=== PATIENT | female | born 1970 | race Caucasian/White ===

== ENCOUNTER → 2017-11-14 09:59 | Outpatient (CLI) | payer OTHER, SELFPAY ==
[2017-11-14 12:25] LABS: Cholesterol 242 mg/dL (200); Glucose 78 mg/dL (70-110); High Density Lipoprotein 64 mg/dL; Triglycerides 143 mg/dL; Very Low Density Lipoprotein 29 mg/dL (5-40)
== END ==
PROVIDERS: Family Provider Family Medicine; PCP Family Medicine; Visit Provider Obstetrics & Gynecology
DX: Z13.1 Encounter for screening for diabetes mellitus (principal); Z13.220 Encounter for screening for lipoid disorders
CPT/HCPCS: 36415; 80061; 82947

== ENCOUNTER → 2018-02-05 09:56 | Outpatient (CLI) | payer OTHER, SELFPAY ==
[2018-02-05 12:34] LABS: T4 Free Direct 1.36 ng/dL (0.76-1.46); Thyroid Stim Hormone (TSH) 0.79 uIU/mL (0.358-3.74)
== END ==
PROVIDERS: Family Provider Family Medicine; PCP Family Medicine; Visit Provider Family Medicine
DX: E03.9 Hypothyroidism, unspecified (principal)
CPT/HCPCS: 36415; 84439; 84443

== ENCOUNTER → 2019-01-12 09:40 | Outpatient (CLI) | payer OTHER, SELFPAY ==
[2017-10-29 09:31] VITALS: BMI 26.1
--- NOTE | 2019-01-12 09:42 | BI_ITS ---
MAMMOGRAPHY - BILATERAL SCREENING REASON FOR EXAM: Female, 48 years old. Routine annual screening examination. PERTINENT HISTORY: Aunts with breast cancer. TECHNIQUE: Digital bilateral breast olegario (3D mammographic acquisition) in the CC and MLO projections. 2-D mediolateral oblique (MLO) and craniocaudad (CC) views of both breasts were obtained. CAD: Full Field Digital Mammography with Computer Added Detection was performed. COMPARISON: Comparison is made with prior study dated October 24, 2017 and August 28, 2016. FINDINGS: Breast Composition: The breasts are heterogeneously dense, which may obscure small masses. There are no dominant masses or suspicious calcifications. Stable benign-appearing bilateral axillary lymph nodes. No other significant abnormalities are identified. There has been no significant change since the prior study. BI/SCREEN MAMM (CAD) W/OLEGARIO BILAT IMPRESSION: Stable bilateral screening mammogram. Yearly follow-up mammogram recommended. (A) ASSESSMENT CATEGORY: BIRADS Category 2: Benign. A letter regarding these results will be sent to the patient by the facility within 30 days. Approximately 10% of breast cancers are not detected by mammography. A normal mammogram should not delay biopsy of a clinically suspicious abnormality. [id number] Electronically Signed: Syd Huynh, at 11:12 EDT , Service support ,
== END ==
PROVIDERS: Family Provider Family Medicine; PCP Family Medicine; Referring Provider Nurse Practitioner Women's Health; Visit Provider Nurse Practitioner Women's Health
DX: Z12.31 Encounter for screening mammogram for malignant neoplasm of breast (principal)
CPT/HCPCS: 77063; 77067

== ENCOUNTER → 2019-02-09 10:47 | Outpatient (CLI) | payer OTHER, SELFPAY ==
[2017-10-29 09:31] VITALS: BMI 26.1
[2019-02-09 13:43] LABS: Anion Gap 6 (5-15); BUN 14 mg/dL (7-18); BUN/Creat Ratio 16.4 RATIO (10-20); Calcium,Total 9.4 mg/dL (8.5-10.1); Chloride 108 mmol/L (98-107); Cholesterol 248 mg/dL (200); Creatinine, Serum 0.85 mg/dL (0.55-1.02); EST Glomerular Filtration Rate 75 mL/min (>60); Est Glom Filt Rate - Afr Amer 91 mL/min (>60); Glucose 81 mg/dL (74-106); High Density Lipoprotein 76 mg/dL; Potassium 4.9 mmol/L (3.5-5.1); Sodium Level 141 mmol/L (136-145); T4 Free Direct 1.53 ng/dL (0.76-1.46); Triglycerides 103 mg/dL; Very Low Density Lipoprotein 21 mg/dL (5-40)
== END ==
PROVIDERS: PCP Family Medicine; Visit Provider Family Medicine
DX: Z13.1 Encounter for screening for diabetes mellitus (principal); Z13.220 Encounter for screening for lipoid disorders; E03.9 Hypothyroidism, unspecified
CPT/HCPCS: 36415; 80048; 80061; 84439; 84443

== ENCOUNTER → 2019-03-23 13:24 | Outpatient (CLI) | payer OTHER, SELFPAY ==
[2019-03-23 09:50] VITALS: BMI 26.1
[2019-03-26 09:52] LABS: HPV APTIMA, High Risk Negative (Negative)
== END ==
PROVIDERS: Family Provider Family Medicine; PCP Family Medicine; Referring Provider Obstetrics & Gynecology; Visit Provider Obstetrics & Gynecology
DX: Z12.4 Encounter for screening for malignant neoplasm of cervix (principal)
CPT/HCPCS: 87624; 88175; G0145

== ENCOUNTER → 2020-02-26 08:51 | Outpatient (CLI) | payer OTHER, SELFPAY ==
[2019-03-23 09:50] VITALS: BMI 26.1
[2020-02-26 11:20] LABS: T4 Free Direct 1.64 ng/dL (0.76-1.46); Thyroid Stim Hormone (TSH) 0.02 uIU/mL (0.358-3.74)
[2020-03-01 09:42] LABS: Cholesterol 200 mg/dL (200); High Density Lipoprotein 68 mg/dL; Triglycerides 87 mg/dL; Very Low Density Lipoprotein 17 mg/dL (5-40)
== END ==
PROVIDERS: PCP Family Medicine; Visit Provider Family Medicine
DX: E03.9 Hypothyroidism, unspecified (principal); Z13.220 Encounter for screening for lipoid disorders
CPT/HCPCS: 36415; 80061; 84439; 84443

== ENCOUNTER → 2020-04-19 12:16 | Outpatient (CLI) | payer OTHER, SELFPAY ==
[2019-03-23 09:50] VITALS: BMI 26.1
--- NOTE | 2020-04-19 12:17 | BI_ITS ---
MAMMOGRAPHY - BILATERAL SCREENING REASON FOR EXAM: Female, 49 years old. Routine annual screening examination. PERTINENT HISTORY: Aunts with breast cancer. TECHNIQUE: Digital bilateral breast olegario (3D mammographic acquisition) in the CC and MLO projections. 2-D mediolateral oblique (MLO) and craniocaudad (CC) views of both breasts were obtained. CAD: Full Field Digital Mammography with Computer Added Detection was performed. COMPARISON: Comparison is made with prior study dated January 12, 2019 and October 24, 2017. FINDINGS: Breast Composition: The breasts are heterogeneously dense, which may obscure small masses. There are no dominant masses or suspicious calcifications. Stable benign-appearing bilateral axillary lymph nodes. No other significant abnormalities are identified. There has been no significant change since the prior study. BI/SCREEN MAMM (CAD) W/OLEGARIO BILAT IMPRESSION: Stable bilateral screening mammogram. Yearly follow-up mammogram recommended. (A) ASSESSMENT CATEGORY: BIRADS Category 2: Benign. A letter regarding these results will be sent to the patient by the facility within 30 days. Approximately 10% of breast cancers are not detected by mammography. A normal mammogram should not delay biopsy of a clinically suspicious abnormality. [id number] Electronically Signed: Syd Huynh, at 14:32 EDT , Service support ,
== END ==
PROVIDERS: PCP Family Medicine; Referring Provider Obstetrics & Gynecology; Visit Provider Obstetrics & Gynecology
DX: Z12.31 Encounter for screening mammogram for malignant neoplasm of breast (principal)
CPT/HCPCS: 77063; 77067

== ENCOUNTER → 2021-03-01 14:19 | Outpatient (CLI) | payer OTHER, SELFPAY ==
[2020-05-24 12:58] VITALS: BMI 26.1
[2021-03-01 18:44] LABS: T4 Free Direct 1.42 ng/dL (0.76-1.46); Thyroid Stim Hormone (TSH) 0.04 uIU/mL (0.358-3.74)
== END ==
PROVIDERS: PCP Family Medicine; Referring Provider Family Medicine; Visit Provider Family Medicine
DX: E03.9 Hypothyroidism, unspecified (principal)
CPT/HCPCS: 36415; 84439; 84443

== ENCOUNTER → 2021-05-08 11:50 | Outpatient (CLI) | payer OTHER, SELFPAY ==
[2020-05-24 12:58] VITALS: BMI 26.1
--- NOTE | 2021-05-08 11:58 | BI_ITS ---
MAMMOGRAPHY - BILATERAL SCREENING REASON FOR EXAM: Female, 50 years old. Routine annual screening examination. PERTINENT HISTORY: Aunts with breast cancer. TECHNIQUE: Digital bilateral breast olegario (3D mammographic acquisition) in the CC and MLO projections. 2-D mediolateral oblique (MLO) and craniocaudad (CC) views of both breasts were obtained. CAD: Full Field Digital Mammography with Computer Added Detection was performed. COMPARISON: Comparison is made with prior study dated 04/19/2020 and 01/12/2019. FINDINGS: Breast Composition: The breasts are heterogeneously dense, which may obscure small masses. There are no dominant masses or suspicious calcifications. Stable benign-appearing bilateral axillary lymph nodes. No other significant abnormalities are identified. There has been no significant change since the prior study. BI/SCRN MAMM (CAD)W/OLEGARIO BILAT IMPRESSION: Stable bilateral screening mammogram. Yearly follow-up mammogram recommended. (A) ASSESSMENT CATEGORY: BIRADS Category 2: Benign. A letter regarding these results will be sent to the patient by the facility within 30 days. Approximately 10% of breast cancers are not detected by mammography. A normal mammogram should not delay biopsy of a clinically suspicious abnormality. [id number] Electronically Signed: Syd Huynh MD at 12:52 EDT , Service support ,
== END ==
PROVIDERS: PCP Family Medicine; Referring Provider Obstetrics & Gynecology; Visit Provider Obstetrics & Gynecology
DX: Z12.31 Encounter for screening mammogram for malignant neoplasm of breast (principal)
CPT/HCPCS: 77063; 77067

== ENCOUNTER 2021-10-16 14:11 | Outpatient (CLI) | payer OTHER, SELFPAY | END 2021-10-16 23:59 | disposition short-term general hospital (02) | LOC: LABSPEC 14:12 | PROVIDERS: PCP Family Medicine; Visit Provider Nurse Practitioner Family | DX: R39.9 Unspecified symptoms and signs involving the genitourinary system (principal) | CPT/HCPCS: 87086; 87088 ==

== ENCOUNTER 2021-11-16 09:54 | Emergency (ER) | payer OTHER, SELFPAY ==
[2021-11-16 09:55] VITALS: BP 125/77; PULSE 112; RESP 16; TEMP 35.7; O2SAT 100; BMI 27.0
--- NOTE | 2021-11-16 10:11 | CT_ITS ---
STUDY: CT ABDOMEN AND PELVIS WITHOUT CONTRAST REASON FOR EXAM: Female, 51 years old. Right flank pain. Painful urination. RADIATION DOSAGE (If Supplied By Facility): CTDIvol = ( 8.11 ) mGy, DLP = ( 370.83 ) mGycm TECHNIQUE: Transaxial images were obtained from the dome of the diaphragm to the symphysis pubis without oral contrast, and without intravenous contrast. Sagittal and coronal images were reconstructed. Individualized dose optimization techniques were used for this CT. COMPARISON: None. FINDINGS: The visualized lung bases are unremarkable. The visualized portions of the heart are within normal limits. Normal liver. Normal gallbladder and extrahepatic biliary system. Normal spleen. Normal pancreas. Normal bilateral adrenal glands. 3 mm calculus in the lower pole calyx of the right kidney. There is a 4 mm nonobstructive calculus in the lower pole calyx of the left kidney. Normal visualized stomach. Normal small intestine. Normal colon. The appendix is visualized and appears normal. Normal abdominal aorta. Normal inferior vena cava. Normal retroperitoneum. Normal urinary bladder. There is evidence of bilateral tubal ligation. Normal abdominal wall. Normal osseous structures. CT/Abdomen/Pelvis without Cont IMPRESSION: Small bilateral nonobstructive intrarenal calculi. No obstructive uropathy is seen at this time. Electronically Signed: Syd Huynh MD at 10:46 EST ,
--- NOTE | 2021-11-16 10:14 | EDS_ITS ---
HPI <MARA Chappell - Last Filed: 11/16/21 11:14> History of Present Illness Chief Complaint: Flank Pain Narrative Narrative: 51-year-old female with PMH of kidney stones presents with right onset flank pain 6 days ago. She also has nausea, dysuria, and frequency. She states it feels like her previous stones which passed without surgical intervention. She denies fever, vomiting, hematuria, or bowel symptoms. Previous abdominal surgeries include tubal ligation. Prior similar symptoms: Yes Recent Illness/Hospitalization: No PFSH <MARA Chappell - Last Filed: 11/16/21 11:14> PFSH Medical History (Updated 11/16/21 @ 10:56 by MARA Chappell) COVID-19 Thyroid disorder Home Medications levothyroxine 112 mcg tablet 112 mcg PO DAILY 05/24/20 [History Last Taken Unknown] cephalexin 500 mg PO Q6 #28 capsule 11/16/21 [Rx Last Taken Unknown] hydrocodone-acetaminophen 1 tab PO Q6H PRN PRN 3 Days #12 tablet MDD 4 11/16/21 [Rx Last Taken Unknown] ondansetron 4 mg PO Q8H PRN PRN #10 tab 11/16/21 [Rx Last Taken Unknown] Allergy/AdvReac Type Severity Reaction Status Date / Time No Known Allergies Allergy Verified 11/16/21 09:57 Family History Son Diabetes Father Cancer prostate Suicide Mother Hypertension Kidney stone Surgical History cyst removed from foot H/O tubal ligation History of tonsillectomy Social History Smoking Status: Never smoker alcohol intake: never substance use type: does not use caffeine: Yes what type of physical activity do you participate in: none seatbelt use: always do you feel safe at home: Yes 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 Eyes: Negative for visual change. ENT: Negative for sore throat, ear pain, rhinorrhea. CVS: Negative for palpitations, chest pain, syncope. Respiratory: Negative for shortness of breath, cough, orthopnea. GI: Positive for abdominal pain, nausea. Negative for vomiting, diarrhea, constipation, melena, hematochezia. : Positive for dysuria, frequency. Negative for hematuria. Neuro: Negative for headache, motor/sensory dysfunction. Skin: Negative for rash, abscess, or wound. Endo: Negative for polyuria, polydipsia. Heme: Negative for easy bruising, bleeding, lymphadenopathy. Allergy: Negative for hives, oral swelling EXAM <MARA Chappell - Last Filed: 11/16/21 11:14> Physical Exam Narrative Exam Narrative: CONST: Patient sitting in no acute distress EYES: Normal inspection ENT: Normal inspection, pharynx normal, moist mucous membranes NECK: Normal inspection RESP: No respiratory distress, CTAB CVS: Regular rate and rhythm, no murmur, no gallop ABD: Soft and nontender, no guarding or rebound, nondistended, no hepatosplenomegaly Back: Normal inspection, right CVA tenderness SKIN: Color normal, no rash, warm, dry, intact EXTREMITIES: normal appearance, no pedal edema NEURO: Oriented x4 PSYCH: Normal affect Const Vital Signs: 11/16/21 09:55 Temperature 96.2 F L Temperature Source Temporal Pulse Rate 112 H Respiratory Rate 16 Blood Pressure 125/77 H Blood Pressure Mean 93 Pulse Ox 100 Oxygen Delivery Method Room Air <Dr. Carolina Jeter DO - Last Filed: 11/16/21 12:55> Physical Exam Const Vital Signs: 11/16/21 09:55 Temperature 96.2 F L Temperature Source Temporal Pulse Rate 112 H Respiratory Rate 16 Blood Pressure 125/77 H Blood Pressure Mean 93 Pulse Ox 100 Oxygen Delivery Method Room Air [facility] <MARA Chappell - Last Filed: 11/16/21 11:14> [facility] Narrative Medical decision making narrative: Patient presented with right flank pain and dysuria. She appears well nontoxic. She was slightly tachycardic with othe rwise normal vital signs. Her abdominal exam is benign and she has right CVA tenderness. Labs show leukocytosis of 18.8 with normal electrolytes and renal function. UA is consistent with UTI. CT is negative for stone or acute findings. Work-up is consistent with pyelonephritis. She was treated with IV fluids, analgesia, and Rocephin. I prescribed Percocet, Zofran, and Keflex 4 times daily for home. She already has follow-up with a urologist established and was counseled on signs that would warrant return. She was discharged in stable condition. Lab Data Labs: Laboratory Results - last 24 hr 11/16/21 11/16/21 11/16/21 10:05 10:10 10:10 WBC 18.8 H RBC 4.66 Hgb 12.8 Hct 40.0 MCV 85.8 MCH 27.5 MCHC 32.0 RDW Std Deviation 40.5 RDW Coeff of Abi 12.9 Plt Count 343 MPV 10.2 Immature Gran % (Auto) 0.500 Neut % (Auto) 74.9 H Lymph % (Auto) 14.8 L [place] % (Auto) 8.8 Eos % (Auto) 0.7 Baso % (Auto) 0.3 Absolute Neuts (auto) 14.1 H Absolute Lymphs (auto) 2.77 Nucleated RBC % 0 Differential Comment COMMENT Diff Path Review May foll Sodium 138 Potassium 3.8 Chloride 106 Carbon Dioxide 26.0 Anion Gap 6 BUN 14 Creatinine 0.86 Estim Creat Clear Calc 59.83 Est GFR (MDRD) Af Amer 89 Est GFR (MDRD) Non-Af 73 BUN/Creatinine Ratio 16.2 Glucose 107 H Calcium 9.6 Urine Color Yellow Urine Clarity Clear Urine pH 7.0 Ur Specific [place] 1.010 Urine Protein 30 H Urine Glucose (UA) Normal Urine Ketones Negative Urine Occult Blood 50 H Urine Nitrite Positive H Urine Bilirubin Negative Urine Urobilinogen 1 H Ur Leukocyte Esterase 500 H Urine RBC 0 SEEN Urine WBC 50-100 SEEN Ur Squamous Epith Cells 0 SEEN Urine Bacteria 2+ Urine Mucus 0 SEEN Radiography Diagnostic Testing: Clinical Impression(s) from Imaging Studies Abdomen/Pelvis CT 11/16/21 10:11 IMPRESSION: Small bilateral nonobstructive intrarenal calculi. No obstructive uropathy is seen at this time. Electronically Signed: Syd Huynh MD at 10:46 EST , <Dr. Carolina Jeter, DO - Last Filed: 11/16/21 12:55> MDM MDM Narrative Medical decision making narrative: Patient evaluated independently and in conjunction with physician travel assistant. Agree with note above unless documented otherwise. I was personally present or immediately available for all clinically relevant procedures and performed my own physical exam and review of systems. Patient evaluates for 6 days of right-sided flank pain with urinary symptoms and nausea. Vital signs are significant for tachycardia but she is afebrile. Patient is given Toradol, Zofran and fluids and has significant improvement of her symptoms while in the emergency room. Her differential includes pyelonephritis, obstructing ureterolithiasis or combination of the 2. Patient does have a leukocytosis of 18.8 however her kidney function is normal. Urinalysis is highly consistent with infection. CT obtained which shows nonobstructing stones. I suspect this is more of a straightforward pyelonephritis. Patient is given a dose of Rocephin in the ER and urine culture sent. She is able tolerate p.o. and I think would be a good candidate for outpatient treatment at this time. She started on high-dose Keflex for this. She is given a short course of pain medication as well as Zofran. Patient has outpatient follow-up with Dr. Gomez is scheduled. She is encouraged to keep that. Patient ambulates easily out of the emergency room. She is counseled return precautions. Lab Data Labs: Laboratory Results - last 24 hr 11/16/21 11/16/21 11/16/21 10:05 10:10 10:10 WBC 18.8 H RBC 4.66 Hgb 12.8 Hct 40.0 MCV 85.8 MCH 27.5 MCHC 32.0 RDW Std Deviation 40.5 RDW Coeff of Abi 12.9 Plt Count 343 MPV 10.2 Immature Gran % (Auto) 0.500 Neut % (Auto) 74.9 H Lymph % (Auto) 14.8 L [place] % (Auto) 8.8 Eos % (Auto) 0.7 Baso % (Auto) 0.3 Absolute Neuts (auto) 14.1 H Absolute Lymphs (auto) 2.77 Nucleated RBC % 0 Differential Comment COMMENT Diff Path Review May foll Sodium 138 Potassium 3.8 Chloride 106 Carbon Dioxide 26.0 Anion Gap 6 BUN 14 Creatinine 0.86 Estim Creat Clear Calc 59.83 Est GFR (MDRD) Af Amer 89 Est GFR (MDRD) Non-Af 73 BUN/Creatinine Ratio 16.2 Glucose 107 H Calcium 9.6 Urine Color Yellow Urine Clarity Clear Urine pH 7.0 Ur Specific [place] 1.010 Urine Protein 30 H Urine Glucose (UA) Normal Urine Ketones Negative Urine Occult Blood 50 H Urine Nitrite Positive H Urine Bilirubin Negative Urine Urobilinogen 1 H Ur Leukocyte Esterase 500 H Urine RBC 0 SEEN Urine WBC 50-100 SEEN Ur Squamous Epith Cells 0 SEEN Urine Bacteria 2+ Urine Mucus 0 SEEN Radiography Diagnostic Testing: Clinical Impression(s) from Imaging Studies Abdomen/Pelvis CT 11/16/21 10:11 IMPRESSION: Small bilateral nonobstructive intrarenal calculi. No obstructive uropathy is seen at this time. Electronically Signed: Syd Huynh MD at 10:46 EST Reading Location ID and State: [facility] / [place] , Service support , Discharge Plan Triage Chief Complaint: Flank Pain ED Provider: Anu Estrella Dx/Rx/DC Orders Clinical Impression: Pyelonephritis, Leukocytosis Instructions: ED Pyelonephritis, Female (Adult) Prescriptions: New hydrocodone-acetaminophen [hydrocodone-acetaminophen] 1 TABLET tablet 1 tab PO Q6H PRN MDD 4 PRN (Reason: Pain) 3 Days Qty: 12 RF: 0 cephalexin [cephalexin] 500 MG capsule 500 mg PO Q6 Qty: 28 RF: 0 ondansetron [ondansetron] 4 MG tablet 4 mg PO Q8H PRN PRN (Reason: Nausea) Qty: 10 RF: 0 No Action levothyroxine [Synthroid] 112 mcg tablet 112 mcg PO DAILY RF: 0 Primary Care Provider: Allen Olea Referrals: Allen Olea MD [Primary Care Provider] - Disposition Disposition: Home, Self Care Discharge Date/Time: 11/16/21 11:46
[2021-11-16] MEDS: Ondansetron 4 MG/2 ML Vial IV (10:17)
[2021-11-16] MEDS: Ketorolac 15 MG/ML Vial IV (10:17)
[2021-11-16] MEDS: 0.9% Normal Saline 1,000 ML 250 ML IV (10:17)
[2021-11-16 10:18] LABS: Mucous, Urine 0 SEEN /hpf (<or=2+); Red Blood Cells-Urine 0 SEEN /hpf (0-5); Squamous Epithelial Cells - UA 0 SEEN /hpf (5-10)
[2021-11-16 10:20] LABS: Absolute Lymphocyte Count 2.77 X10^3/uL (0.83-4.51); Absolute Neutrophil Count 14.1 X10^3/uL (2.0-7.7); Basophil# 0.06 X10^3/uL; Basophil% 0.3 % (0-1); Differential Indicated SCAN CRITERIA MET; Eosinophil# 0.13 X10^3/uL; Eosinophils% 0.7 % (0-5); Hemoglobin 12.8 g/dL (12.0-15.0); Lymphocyte # 2.77 X10^3/ul (0.83-4.51); Lymphocyte % 14.8 % (19-41); Mean Corpuscular Hgb 27.5 pg (27.0-32.0); Mean Corpuscular Volume 85.8 fL (81-99); Mean Platelet Vol. 10.2 fl (6.2-12.0); Monocyte# 1.65 X10^3/uL; Monocyte% 8.8 % (0-10); NRBC Flagged by Analyzer 0 % (0-5); Neutrophil # 14.06 X10^3/uL (2.7-7.7); Neutrophil % 74.9 % (47-70); POSITIVE DIFFERENTIAL YES; Platelet Count 343 K/mm3 (150-450); RBC Distribution Width CV 12.9 % (11.6-14.6); RBC Distribution Width SD 40.5 fl (35.1-43.9); Red Blood Count 4.66 M/mm3 (4.2-5.4); White Blood Count 18.8 K/mm3 (4.4-11.0)
[2021-11-16 10:20] LABS: Color, Urine Yellow (Yellow); Glucose, Dipstick Normal (Normal); Ketone-Dipstick Negative (Negative); Leukocyte Esterase-Dipstick 500 /ul (Negative); Nitrite-Dipstick Positive (Negative); Occult Blood-Urine 50 /ul (Negative); Protein-Dipstick 30 mg/dl (Negative); Urine Bilirubin Dipstick Negative (Negative); Urine Clarity Clear (Clear); Urine Urobilinogen 1 mg/dl (Normal)
[2021-11-16 10:26] LABS: Bacteria 2+ /hpf (None Seen); White Blood Cells 50-100 SEEN /hpf (0-5)
[2021-11-16 10:30] LABS: Anion Gap 6 (5-15); BUN 14 mg/dL (7-18); BUN/Creat Ratio 16.2 RATIO (10-20); Calcium,Total 9.6 mg/dL (8.5-10.1); Chloride 106 mmol/L (98-107); Creatinine, Serum 0.86 mg/dL (0.55-1.02); EST Glomerular Filtration Rate 73 mL/min (>60); Est Glom Filt Rate - Afr Amer 89 mL/min (>60); Estimated Creatinine Clearance 59.83 ml/min; Glucose 107 mg/dL (74-106); Potassium 3.8 mmol/L (3.5-5.1); Sodium Level 138 mmol/L (136-145)
[2021-11-16] MEDS: Ceftriaxone 1 GM/50 ML BAG IV (11:10)
[2021-11-17 12:31] LABS: Pathologist Review Reviewed
== END 2021-11-16 11:46 | disposition home or self-care (01) ==
PROVIDERS: Emergency Provider Physician Assistant; PCP Family Medicine; Visit Provider Physician Assistant
DX: D72.829 Elevated white blood cell count, unspecified (principal); N12 Tubulo-interstitial nephritis, not specified as acute or chronic; E07.9 Disorder of thyroid, unspecified; Z86.16 Personal history of COVID-19; Z79.899 Other long term (current) drug therapy
CPT/HCPCS: 74176; 80048; 81001; 85025; 87086; 87088; 87186; 96365; 96375; 99283; J7030; A4216; J2405

== ENCOUNTER 2021-12-19 14:13 | Outpatient (CLI) | payer OTHER, SELFPAY ==
[2021-12-19 18:19] LABS: Thyroid Stim Hormone (TSH) 0.06 uIU/mL (0.358-3.74)
== END 2021-12-19 23:59 | disposition home or self-care (01) ==
LOC: MFPLAB 14:14
PROVIDERS: PCP Family Medicine; Referring Provider Family Medicine; Visit Provider Family Medicine
DX: E03.9 Hypothyroidism, unspecified (principal)
CPT/HCPCS: 36415; 84443

== ENCOUNTER 2021-12-19 14:22 | Outpatient (CLI) | payer OTHER, SELFPAY ==
--- NOTE | 2021-12-19 14:24 | RAD_ITS ---
STUDY: X-RAY - ABDOMEN/PELVIS REASON FOR EXAM: Female, 51 years old. Renal stones. Follow-up. TECHNIQUE: CT of the abdomen and pelvis dated 11/16/2021. COMPARISON: None. FINDINGS: Normal visualized lung bases. There is an unremarkable bowel gas pattern. There is no demonstrated free abdominal air. The small calcifications seen on the CT study are not seen today because of overlying feces and bowel gas. Tubal ligation clips. Normal visualized osseous structures. RAD/Abdomen Single View IMPRESSION: No calcifications seen because of overlying bowel gas and feces. No acute finding. Electronically Signed: Vinicius Ricks MD at 9:31 EST ,
== END 2021-12-19 23:59 | disposition home or self-care (01) ==
LOC: MTRAD 14:23
PROVIDERS: PCP Family Medicine; Referring Provider Urology; Visit Provider Urology
DX: N20.0 Calculus of kidney (principal)
CPT/HCPCS: 74018

== ENCOUNTER → 2022-02-03 | Outpatient (CLI) | payer OTHER, SELFPAY ==
[2022-02-03 14:14] LABS: Mucous, Urine 0 SEEN /hpf (<or=2+); Squamous Epithelial Cells - UA 0 SEEN /hpf (5-10)
[2022-02-03 14:27] LABS: Color, Urine Yellow (Yellow); Glucose, Dipstick Normal (Normal); Ketone-Dipstick Negative (Negative); Leukocyte Esterase-Dipstick 25 /ul (Negative); Nitrite-Dipstick Negative (Negative); Occult Blood-Urine 10 /ul (Negative); Protein-Dipstick Negative (Negative); Specific Gravity, Urine 1.015 (1.002-1.030); Urine Bilirubin Dipstick Negative (Negative); Urine Clarity Clear (Clear); Urine Urobilinogen Normal (Normal)
[2022-02-03 14:35] LABS: White Blood Cells 10-25 SEEN /hpf (0-5)
[2022-02-03 14:36] LABS: Bacteria RARE /hpf (None Seen); Red Blood Cells-Urine 0 SEEN /hpf (0-5)
== END | disposition home or self-care (01) ==
LOC: LABSPEC 14:11
PROVIDERS: PCP Family Medicine; Visit Provider Physician Assistant Surgical
DX: N39.0 Urinary tract infection, site not specified (principal)
CPT/HCPCS: 81001; 87086; 87088

== ENCOUNTER → 2022-02-19 | Outpatient (CLI) | payer OTHER, SELFPAY ==
[2022-02-19 18:39] LABS: T4 Free Direct 1.28 ng/dL (0.76-1.46); Thyroid Stim Hormone (TSH) 0.15 uIU/mL (0.358-3.74)
== END | disposition home or self-care (01) ==
LOC: MFPLAB 14:11
PROVIDERS: PCP Family Medicine; Visit Provider Family Medicine
DX: E03.9 Hypothyroidism, unspecified (principal)
CPT/HCPCS: 36415; 84439; 84443

== ENCOUNTER → 2022-05-09 | Outpatient (CLI) | payer OTHER, SELFPAY ==
--- NOTE | 2022-05-09 13:08 | BI_ITS ---
MAMMOGRAPHY - BILATERAL SCREENING REASON FOR EXAM: Female, 51 years old. Routine annual screening examination. PERTINENT HISTORY: Aunts with breast cancer. TECHNIQUE: Digital bilateral breast olegario (3D mammographic acquisition) in the CC and MLO projections. 2-D mediolateral oblique (MLO) and craniocaudad (CC) views of both breasts were obtained. CAD: Full Field Digital Mammography with Computer Added Detection was performed. COMPARISON: Comparison is made with prior study dated 05/08/2021 and 04/19/2020. FINDINGS: Breast Composition: The breasts are heterogeneously dense, which may obscure small masses. There are no dominant masses or suspicious calcifications. Stable small bilateral axillary lymph nodes. No other significant abnormalities are identified. There has been no significant change since the prior study. BI/SCRN MAMM (CAD)W/OLEGARIO BILAT IMPRESSION: Stable bilateral screening mammogram. Yearly follow-up mammogram recommended. (A) ASSESSMENT CATEGORY: BIRADS Category 2: Benign. A letter regarding these results will be sent to the patient by the facility within 30 days. Approximately 10% of breast cancers are not detected by mammography. A normal mammogram should not delay biopsy of a clinically suspicious abnormality. [id number] Electronically Signed: Syd Huynh MD at 14:07 EDT ,
== END | disposition home or self-care (01) ==
LOC: OPBI 13:07
PROVIDERS: PCP Family Medicine; Visit Provider Obstetrics & Gynecology
DX: Z12.31 Encounter for screening mammogram for malignant neoplasm of breast (principal)
CPT/HCPCS: 77063; 77067

== ENCOUNTER → 2022-12-10 | Outpatient (CLI) | payer OTHER, SELFPAY ==
--- NOTE | 2022-12-10 08:55 | US_ITS ---
STUDY: ULTRASOUND BREAST - RIGHT REASON FOR EXAM: Female, 52 years old. Pain in the right breast. TECHNIQUE: Axial and longitudinal images of the RIGHT breast were performed with a high resolution ultrasound transducer. # OF IMAGES: 60 COMPARISON: Comparison is made with prior mammogram done earlier in today. FINDINGS: RIGHT Breast: The inferior half of the right breast was examined with ultrasound. There is heterogeneously dense fibroglandular tissue. No sonographic abnormality is seen. IMPRESSION: No sonographic abnormality is seen. ASSESSMENT CATEGORY: BIRADS Category 1: Negative. A letter regarding these results will be sent to the patient by the facility within 30 days. Electronically Signed: Syd Huynh MD at 14:52 EST , STUDY: ULTRASOUND BREAST - LEFT REASON FOR EXAM: Female, 52 years old. Pain in the left breast. TECHNIQUE: Axial and longitudinal images of the LEFT breast were performed with a high resolution ultrasound transducer. # OF IMAGES: 60 COMPARISON: Comparison is made with prior mammogram done earlier today. FINDINGS: LEFT Breast: The upper lateral aspect of the left breast was examined with ultrasound. No sonographic abnormality is seen. US/Breast Limited Unilateral
--- NOTE | 2022-12-10 08:55 | BI_ITS ---
MAMMOGRAPHY - BILATERAL DIAGNOSTIC REASON FOR EXAM: Female, 52 years old. Pain in the upper outer aspect of the left breast. PERTINENT HISTORY: Aunts with breast cancer. TECHNIQUE: Digital bilateral breast adi (3D mammographic acquisition) in the CC and MLO projections. 2-D mediolateral oblique (MLO) and craniocaudad (CC) views of both breasts were obtained. CAD: Full Field Digital Mammography with Computer Added Detection was performed. COMPARISON: Comparison is made with prior examination of 05/09/2022 and 05/08/2021. FINDINGS: Breast Composition: The breasts are heterogeneously dense, which may obscure small masses. There are no dominant masses or suspicious calcifications. Stable benign-appearing bilateral axillary lymph nodes. No other significant abnormalities are identified. There has been no significant change since the prior study. BI/DIAG MAMM W/CAD, BILAT IMPRESSION: Stable bilateral diagnostic mammogram. One year follow-up recommended. (A) ASSESSMENT CATEGORY: BIRADS Category 2: Benign. A letter regarding these results will be sent to the patient by the facility within 30 days. Approximately 10% of breast cancers are not detected by mammography. A normal mammogram should not delay biopsy of a clinically suspicious abnormality. Electronically Signed: Syd Huynh MD at 10:54 EST ,
== END | disposition home or self-care (01) ==
LOC: OPBI 08:53
PROVIDERS: PCP Family Medicine; Visit Provider Obstetrics & Gynecology
DX: N64.4 Mastodynia (principal)
CPT/HCPCS: 76642; 77062; 77066; G0279

== ENCOUNTER → 2022-12-31 | Outpatient (CLI) | payer OTHER, SELFPAY ==
[2022-12-31 16:10] LABS: Thyroid Stim Hormone (TSH) 0.59 uIU/mL (0.358-3.74)
== END | disposition home or self-care (01) ==
LOC: MFPLAB 11:51
PROVIDERS: PCP Family Medicine; Visit Provider Family Medicine
DX: E03.9 Hypothyroidism, unspecified (principal)
CPT/HCPCS: 36415; 84439; 84443

== ENCOUNTER → 2023-01-16 | Outpatient (CLI) | payer OTHER, SELFPAY ==
--- NOTE | 2023-01-16 12:59 | RAD_ITS ---
INDICATION: BILATERAL STONES EXAMINATION/TECHNIQUE: X-RAY - XR Abdomen 1 View COMPARISON: FINDINGS: BOWEL GAS PATTERN: Non-obstructive. No bowel or stomach distention. FREE AIR: Not assessed on a single supine view. ORGANOMEGALY: Not seen. CALCIFICATIONS: Stool and bowel gas obscure anatomic detail of the kidneys. No abnormal calcifications observed. LOWER CHEST: No acute pathology. BONES AND SOFT TISSUES: There are tubal ligation clips in place. RAD/Abdomen Single View IMPRESSION: Non-obstructive bowel gas pattern. Limited visualization of the expected region of the kidneys secondary to overlying bowel gas and stool with no renal calculi identified. Electronically Signed: Aminta Camilo MD at 9:40 EDT ,
== END | disposition home or self-care (01) ==
LOC: MTRAD 12:58
PROVIDERS: PCP Family Medicine; Visit Provider Urology
DX: N20.0 Calculus of kidney (principal)
CPT/HCPCS: 74018

== ENCOUNTER → 2024-05-13 | Outpatient (CLI) | payer OTHER, SELFPAY ==
--- NOTE | 2024-05-13 14:50 | BI_ITS ---
MAMMOGRAPHY - BILATERAL SCREENING REASON FOR EXAM: Female, 53 years old. Routine annual screening examination. PERTINENT HISTORY: Aunts with breast cancer. TECHNIQUE: Digital bilateral breast olegario (3D mammographic acquisition) in the CC and MLO projections. 2-D mediolateral oblique (MLO) and craniocaudad (CC) views of both breasts were obtained. CAD: Full Field Digital Mammography with Computer Added Detection was performed. COMPARISON: Comparison is made with prior study dated May 09, 2022 and December 10, 2022. FINDINGS: Breast Composition: The breasts are heterogeneously dense, which may obscure small masses. There are no dominant masses or suspicious calcifications. No other significant abnormalities are identified. There has been no significant change since the prior study. BI/SCRN MAMM (CAD)W/OLEGARIO BILAT IMPRESSION: Stable bilateral screening mammogram. Yearly follow-up mammogram recommended. (A) ASSESSMENT CATEGORY: BIRADS Category 1: Negative. A letter regarding these results will be sent to the patient by the facility within 30 days. Approximately 10% of breast cancers are not detected by mammography. A normal mammogram should not delay biopsy of a clinically suspicious abnormality. [id number] Electronically Signed: Syd Huynh MD at 8:57 EDT ,
--- NOTE | 2024-05-13 15:13 | US_ITS ---
INDICATION: pelvic pain EXAMINATION: Ultrasound US Pelvis Non OB Complete With Transvaginal Imaging TECHNIQUE: Transabdominal and transvaginal pelvic ultrasound was performed. Grayscale, spectral waveform, and color flow Doppler evaluation of the adnexa. COMPARISON: CT November 16, 2021. FINDINGS: UTERUS: Anteverted. The uterus measures 5.2 x 2.7 x 4.9 cm. No evidence of uterine mass. The endometrial stripe measures 2 mm left in AP diameter RIGHT OVARY: Obscured by bowel gas and surrounding soft tissues and not seen on transabdominal or endovaginal exam . LEFT OVARY: Obscured by bowel gas and surrounding soft tissues and not seen on transabdominal or endovaginal exam BLADDER: Anechoic without focal wall thickening with prevoid volume 6 2 mL. FREE FLUID: None. US/Pelvic w/ Transvaginal IMPRESSION: Thin endometrial stripe is nonspecific in a perimenopausal female but can be seen with endometrial atrophy. Ovaries are obscured as above, limiting exam. Electronically Signed: Zion Orr MD at 8:47 EDT ,
--- NOTE | 2024-05-13 15:14 | US_ITS ---
INDICATION: BACK PAIN/HX STONES EXAMINATION: Ultrasound US Kidney(s) complete (eg, kidneys and bladder) TECHNIQUE: Muniz scale and color doppler images were obtained of the kidneys. COMPARISON: November 16, 2021 CT. FINDINGS: RIGHT KIDNEY: 10.6 x 4.9 x 3.8 cm. Mild hydronephrosis. Mid pole 7 mm and lower pole 6 mm nonobstructive nonshadowing renal stones are suggested with twinkle artifact. No focal lesion or perinephric collection is demonstrated. LEFT KIDNEY: 12.1 x 4.6 x 5.1 cm. There is no hydronephrosis. Mid pole 8mm and 7 mm lower pole nonobstructive nonshadowing renal stones are suggested with twinkle artifact. No shadowing calculus, focal lesion or perinephric collection is demonstrated. URINARY BLADDER: Anechoic 5.1 x 5.5 x 10.0 cm (147 mL). Bilateral ureteral jets are demonstrated. Mild diffuse increased hepatic echogenicity US/Kidney and Bladder IMPRESSION: Findings compatible with bilateral nonobstructive renal stones. Mild right hydronephrosis. CT could better evaluate for right ureteral stone as clinically indicated. Electronically Signed: Zion Orr MD at 8:25 EDT ,
== END | disposition home or self-care (01) ==
PROVIDERS: PCP Family Medicine; Referring Provider Urology; Visit Provider Urology
DX: Z12.31 Encounter for screening mammogram for malignant neoplasm of breast (principal); Z80.3 Family history of malignant neoplasm of breast; M54.9 Dorsalgia, unspecified; Z87.442 Personal history of urinary calculi
CPT/HCPCS: 76770; 76830; 76856; 77063; 77067

== ENCOUNTER → 2024-05-29 | Outpatient (CLI) | payer OTHER, SELFPAY ==
[2024-05-29 12:44] LABS: Anion Gap 4 (5-15); BUN 15 mg/dL (7-18); BUN/Creat Ratio 20.1 RATIO (10-20); Calcium,Total 9.9 mg/dL (8.5-10.1); Chloride 106 mmol/L (98-107); Cholesterol 193 mg/dL (200); Creatinine, Serum 0.75 mg/dL (0.55-1.02); EST Glomerular Filtration Rate 85 mL/min (>60); Est Glom Filt Rate - Afr Amer 103 mL/min (>60); Glucose 88 mg/dL (74-106); High Density Lipoprotein 74 mg/dL; Potassium 4.1 mmol/L (3.5-5.1); Sodium Level 139 mmol/L (136-145); T4 Free Direct 1.47 ng/dL (0.76-1.46); Triglycerides 56 mg/dL; Very Low Density Lipoprotein 11 mg/dL (5-40)
== END | disposition home or self-care (01) ==
LOC: MFPLAB 09:59
PROVIDERS: PCP Family Medicine; Visit Provider Family Medicine
DX: E03.9 Hypothyroidism, unspecified (principal); Z13.220 Encounter for screening for lipoid disorders
CPT/HCPCS: 36415; 80048; 80061; 84439; 84443

== ENCOUNTER → 2024-06-18 | Outpatient (CLI) | payer OTHER, SELFPAY ==
[2024-06-23 10:09] LABS: HPV APTIMA, High Risk Negative (Negative)
== END | disposition home or self-care (01) ==
PROVIDERS: PCP Family Medicine; Referring Provider Obstetrics & Gynecology; Visit Provider Obstetrics & Gynecology
DX: Z12.4 Encounter for screening for malignant neoplasm of cervix (principal)
CPT/HCPCS: 87624; 88175; G0145

== ENCOUNTER → 2024-06-24 | Outpatient (CLI) | payer OTHER, SELFPAY ==
--- NOTE | 2024-06-24 13:56 | CT_ITS ---
STUDY: CT ABDOMEN AND PELVIS WITHOUT CONTRAST REASON FOR EXAM: Female, 53 years old. Calculus of kidney RADIATION DOSAGE (If Supplied By Facility): CTDIvol = ( 7.65 ) mGy, DLP = ( 372.79 ) mGycm TECHNIQUE: Transaxial images were obtained from the dome of the diaphragm to the symphysis pubis without oral contrast, and without intravenous contrast. Sagittal and coronal images were reconstructed. Individualized dose optimization techniques were used for this CT. COMPARISON: Comparison is made with prior study dated November 16, 2021. FINDINGS: The visualized lung bases are unremarkable. The visualized portions of the heart are within normal limits. Normal liver. Normal gallbladder and extrahepatic biliary system. Normal spleen. Normal pancreas. Normal bilateral adrenal glands. 2 mm nonobstructive calculus in the lower pole calyx of the right kidney. There is a 3 mm nonobstructive calculus in the lower pole calyx of the left kidney. Normal visualized stomach. Normal small intestine. Normal colon. The appendix is visualized and appears normal. Normal abdominal aorta. Normal inferior vena cava. Normal retroperitoneum. Normal urinary bladder. Bilateral tubal ligation clips. Normal abdominal wall. Normal osseous structures. CT/Abdomen/Pelvis without Cont IMPRESSION: Stable small bilateral nonobstructive intrarenal calculi. Electronically Signed: Syd Huynh MD at 15:14 EDT ,
== END | disposition home or self-care (01) ==
PROVIDERS: PCP Family Medicine; Referring Provider Urology; Visit Provider Urology
DX: N20.0 Calculus of kidney (principal)
CPT/HCPCS: 74176

== ENCOUNTER → 2024-09-04 | Outpatient (CLI) | payer OTHER, SELFPAY ==
[2024-09-04 13:03] LABS: T4 Free Direct 1.28 ng/dL (0.76-1.46); Thyroid Stim Hormone (TSH) 0.908 uIU/mL (0.358-3.740)
== END | disposition home or self-care (01) ==
LOC: MFPLAB 10:46
PROVIDERS: PCP Family Medicine; Referring Provider Family Medicine; Visit Provider Family Medicine
DX: E03.9 Hypothyroidism, unspecified (principal)
CPT/HCPCS: 36415; 84439; 84443

== ENCOUNTER → 2025-06-01 | Outpatient (CLI) | payer OTHER, SELFPAY ==
--- NOTE | 2025-06-01 14:32 | BI_ITS ---
EXAM: SCRN MAMM (CAD)W/OLEGARIO BILAT DATE: 06/01/2025 CLINICAL HISTORY: F, Age 54 y/o , SCREENING MAMMOGRAM Aunt with breast cancer. TECHNIQUE: SCRN MAMM (CAD)W/OLEGARIO BILAT COMPARISON: Prior exam(s) dated May 13, 2024.. FINDINGS: TISSUE DENSITY: The breasts are heterogeneously dense, which may obscure small masses. Bilateral Breast Mammographic Findings: No significant masses, calcifications or other abnormalities are identified. Stable bilateral axillary lymph nodes. BI/SCRN MAMM (CAD)W/OLEGARIO BILAT IMPRESSION: Stable examination. OVERALL FINAL ASSESSMENT BI-RADS 2: BENIGN RECOMMENDATION: Routine annual follow-up in 1 Year A letter with findings and recommendations will be mailed to the patient. Reading Location: [id number]
== END | disposition home or self-care (01) ==
LOC: OPBI 14:30
PROVIDERS: PCP Family Medicine; Referring Provider Obstetrics & Gynecology; Visit Provider Obstetrics & Gynecology
DX: Z12.31 Encounter for screening mammogram for malignant neoplasm of breast (principal)
CPT/HCPCS: 77063; 77067

== ENCOUNTER → 2025-06-08 | Outpatient (CLI) | payer OTHER, SELFPAY ==
--- NOTE | 2025-06-08 10:52 | RAD_ITS ---
PROCEDURE: ABDOMEN SINGLE VIEW 06/08/2025 REASON FOR EXAM: KIDNEY STONES, BACK PAIN TECHNIQUE: ABDOMEN SINGLE VIEW COMPARISON: [facility], 01/16/2023. FINDINGS: There is a nonobstructive bowel gas pattern. There are no soft tissue calcifications projected over either renal outline or along the path of either ureter. There are tubal ligation clips in the pelvis. There is mild dextroscoliosis of the lumbar spine. RAD/Abdomen Single View IMPRESSION: No evidence of acute abdominal pathology. No evidence of nephrolithiasis. Reading Location: [id number]
== END | disposition home or self-care (01) ==
PROVIDERS: PCP Family Medicine; Referring Provider Urology; Visit Provider Urology
DX: N20.1 Calculus of ureter (principal)
CPT/HCPCS: 74018

== ENCOUNTER → 2025-06-29 | Outpatient (CLI) | payer OTHER, SELFPAY ==
[2025-06-29 13:47] LABS: Anion Gap 11 (5-15); BUN 14 mg/dL (4-19); BUN/Creat Ratio 17.9 RATIO (10-20); Calcium,Total 9.9 mg/dL (7.6-11.0); Carbon Dioxide 23.7 mmol/L (21.0-32.0); Chloride 106 mmol/L (98-108); Glucose 88 mg/dL (70-99); Potassium 4.2 mmol/L (3.3-5.1); Vitamin D,25 Hydroxy 30.9 ng/mL (30-100)
== END | disposition home or self-care (01) ==
LOC: MTLAB 10:05
PROVIDERS: PCP Family Medicine; Referring Provider Family Medicine; Visit Provider Family Medicine
DX: E03.9 Hypothyroidism, unspecified (principal); Z13.1 Encounter for screening for diabetes mellitus
CPT/HCPCS: 36415; 80048; 82306; 84439; 84443